=== PATIENT | male | born 1995 | race Caucasian/White ===

== ENCOUNTER 2016-05-03 08:48 | Day surgery (SDC) | payer OTHER ==
[~2016-05-03 08:48] MED LIST: BUPIVACAINE HCL 0.25 % INJ/PF (2.5 MG/1 ML) 30 ML VIAL ONE; CEFAZOLIN 2 GM/D5W RTU 2 GM/50 ML RTUPB IV PRN; LACTATED RINGERS 1000 ML IV PRN; LIDOCAINE 0.5% INJ-PF (5 MG/ML) 50 ML SDV SUBCUT PRN; MORPHINE SULFATE 10 MG/ML INJ IV PRN; ONDANSETRON HCL INJ/PF 4 MG/2 ML SDV IV PRN
[2016-05-03] MEDS ORDERED: MIDAZOLAM 2 MG/2 ML INJ ONE (11:04)
[2016-05-03] MEDS ORDERED: KETOROLAC TROMETHAMINE 60 MG/2 ML SDV ONE (11:04)
[2016-05-03] MEDS ORDERED: PROPOFOL INJ 200 MG/20 ML VIAL IV ONE (11:04)
[2016-05-03] MEDS ORDERED: HYDROMORPHONE HCL INJ/PF 2 MG/ML AMPULE ONE (11:04)
[2016-05-03] MEDS ORDERED: FENTANYL CITRATE INJ/PF 100 MCG/2 ML AMPUL ONE (11:04)
[2016-05-03] MEDS ORDERED: ONDANSETRON HCL INJ/PF 4 MG/2 ML SDV ONE (11:05)
[2016-05-03] MEDS ORDERED: DEXAMETHASONE SOD PHOSPHATE INJ 4 MG/1 ML VIAL ONE (11:05)
[2016-05-03] MEDS ORDERED: DIPHENHYDRAMINE HCL 50 MG/ML VIAL IV PRN (11:56)
[2016-05-03] MEDS ORDERED: MEPERIDINE HCL/PF INJ 25 MG/1 ML DISP.SYRIN IV PRN (11:56)
[2016-05-03] MEDS ORDERED: OXYCODONE-ACETAMINOPHEN 5-325 MG TABLET PO PRN ×4 (11:56→13:29)
[2016-05-03] MEDS ORDERED: FENTANYL CITRATE INJ/PF 100 MCG/2 ML AMPUL IV PRN ×3 (11:56)
[2016-05-03] MEDS ORDERED: PROMETHAZINE HCL INJ 25 MG/1 ML VIAL IV PRN ×2 (11:56)
[2016-05-03] MEDS ORDERED: MORPHINE SULFATE 10 MG/ML INJ IV PRN ×2 (11:56→13:28)
--- NOTE | 2016-05-03 12:56 | Brief Operative Note ---
BRIEF OPERATIVE REPORT DATE OF SURGERY: 05/03/16 TIME OF SURGERY: 11:00 PREOPERATIVE DIAGNOSIS: left grade III varicocele POSTOPERATIVE DIAGNOSIS: Left grade III varicocele SURGEON: JOSE PERRY 1ST [employer] SYSTEM TECHNICIAN: ERICKSON MUHAMMAD FINDINGS: see dictation COMPLICATIONS: none ESTIMATED BLOOD LOSS: 5 TISSUE REMOVED OR ALTERED: none TECHNICAL PROCEDURE: left inguinal microscopic varicocelectomy
[2016-05-03] MEDS ORDERED: ONDANSETRON HCL INJ/PF 4 MG/2 ML SDV IV PRN (13:31)
--- NOTE | 2016-05-03 13:39 | OPERATIVE REPORT E ---
Operative Report NAME: GERBER SALAZAR : 1995 AGE: 20Y DATE OF SURGERY: 05/03/2016 ROOM: PREOPERATIVE DIAGNOSIS: Left grade-3 varicocele. POSTOPERATIVE DIAGNOSIS: Left grade-3 varicocele. OPERATION: Left inguinal microscopic varicocelectomy. SURGEON: Luis Armando Dumont M.D. ORE DIGGER: Segundo Holly DO ANESTHESIA: General endotracheal. ESTIMATED BLOOD LOSS: 5 mL. INTRAVENOUS FLUIDS: Ringer's lactate 900 mL. DRAINS UTILIZED: None. COMPLICATIONS: None. CONDITION: Stable. 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 He presents for varicocelectomy after discussion of risks and benefits for purposes of fertility improvement and pain resolution. PROCEDURE: Patient was identified in the preop holding area. Surgery with all the attendant risks and benefits were again described in detail to the patient. He confirmed his consent to proceed and was given Ancef 2 gm, then brought in the operating room, where general endotracheal anesthesia was provided. He then had his groin shaved, and he was prepped and draped in the usual sterile fashion. A surgical timeout was performed, and all were in agreement with the patient, laterality, procedure, antibiotics, and the expectations for the case. After the timeout, we began by marking out the left external inguinal ring. We marked a curvilinear incision approximately 3.5 cm just superior to this along Beth lines. We incised this with a scalpel and carried the dissection down with the Bovie through the subcutaneous tissue and all the way down to the fascia. There was some scar tissue from prior inguinal hernia repair as an ; however, the external oblique fascia was able to easily be identified and swept clear bluntly. Once we identified the cord exiting the external ring, we incised using scissors along the external oblique fascia superolaterally from the ring through the entirety of our incision. We then secured the cranial limb of this with a 2-0 Vicryl stitch. The cord was then bluntly dissected with Kittner's and then grasped and elevated through the incision. A 1/4-inch [place] drain was placed behind it. We bluntly dissected down to the floor of the canal. We could see a large perforating vein present. We encircled this with a right angle and suture ligated it with a 2-0 silk tie, and we further evaluated the floor and found no further veins that were present. We then brought in the operating microscope. With the operating microscope in place, we opened the external and internal spermatic fascia. There were 2 large veins that were identified and tied off. We then brought the Doppler in and confirmed the location of the artery, and then we cycled through the cord contents in a single layer and confirmed that there were no other veins that were suitable for tying off. At this point, we did a cord block with 2% Marcaine, irrigated, and placed the cord back in normal anatomic location. We then irrigated once again and closed the fascia with running 2-0 Vicryl. We then used 0.25% Marcaine in the fascial layer for postoperative pain control. We then closed Camper and Sandra fascia with interrupted 3-0 Vicryl, closed the deep dermal layer with interrupted 3-0 Vicryl as well, used additional Marcaine in the subcutaneous layer just below the skin for a total of 20 mL used, then closed the skin with running 4-0 Monocryl in a subcuticular stitch. We then cleaned the patient, applied Dermabond to the incision, placed Fluffs and scrotal support over the genitalia, and awakened the patient from anesthesia. He was transferred to the PACU in stable condition, where he recovered. Plan is for recovery per the PACU protocol and discharge home today. He will have 2 weeks of SIQ followed by 2 weeks of light duty and will follow up with semen analysis in 3 months' time. DICTATING PHYSICIAN: Luis Armando Dumont MD [id number] Y#: [id number] ID: [id number] JOB#: [id number] ACCT: [id number] cc:Luis Armando Dumont M.D. >
[2016-05-03 14:52] VITALS: BP 128/72
[2016-05-03] MEDS ORDERED: SUCCINYLCHOLINE CHLORIDE INJ 200 MG/10 ML VIAL ONE (16:20)
== END 2016-05-03 14:50 | disposition home or self-care (01) ==
LOC: OROUT 08:48
PROVIDERS: ATTEND Urology
PROC: 0VBG0ZZ Excision of Left Spermatic Cord, Open Approach (ICD-10-PCS; principal; 2016-05-03 11:00)
DX: I86.1 Scrotal varices (principal); N43.41 Spermatocele of epididymis, single; Z87.891 Personal history of nicotine dependence
CPT/HCPCS: 55535; J2250; J1100; J1885; J3010; J1170; J0330; J2405; J2704; J0690; 860